=== PATIENT | female | born 1975 | race Asian ===

== ENCOUNTER 2019-06-24 18:30 | Emergency (ER) | payer OTHER ==
[~2019-06-24] VITALS: Ht 154.9 cm; Wt 50.0 kg
[2019-06-24] MEDS ORDERED: IBUPROFEN 600MG TABLET PO ONE (19:30)
[2019-06-24 20:35] VITALS: BP 141/79
== END 2019-06-24 20:47 | disposition home or self-care (01) ==
LOC: ER 18:30
DX: S20.212A Contusion of left front wall of thorax, initial encounter (principal); V49.49XA Driver injured in collision with other motor vehicles in traffic accident, initial encounter; Y93.89 Activity, other specified; Y92.488 Other paved roadways as the place of occurrence of the external cause; Y99.8 Other external cause status
CPT/HCPCS: 71045; 93005; 99283